=== PATIENT | female | born 1995 | race Caucasian/White ===

== ENCOUNTER 2021-06-07 20:35 | Emergency (ER) | payer OTHER, SELFPAY ==
--- NOTE | ~2021-06-07 | XR_ITS ---
EXAMINATION: XR tibia fibula LT 2V DATE: 06/07/2021 21:44 INDICATION: Posterior left knee pain TECHNIQUE: Anteroposterior and lateral views of the left tibia and fibula were obtained. COMPARISON: None. FINDINGS: Alignment is normal. Irregular but smooth cortical contour at the proximal metadiaphyseal region of t he left fibula suggesting an old healed fracture. No acute fracture. Joint spaces are normal. No left knee joint effusion. Left ankle joint effusion seen on ankle radiographs is not as well appreciated on the current study. Prominent soft tissue swelling about the lateral malleolus. IMPRESSION: 1. No acute osseous abnormality. Reviewed, dictated and finalized at location A.
--- NOTE | ~2021-06-07 | XR_ITS ---
EXAMINATION: XR ankle LT min 3V DATE: 06/07/2021 20:49 INDICATION: Left ankle pain and swelling post twisting injury TECHNIQUE: Anteroposterior, oblique, mortise, and lateral views of the left ankle were obtained. COMPARISON: None. FINDINGS: Alignment is normal. No fracture. Joint spaces are well maintained. Prominent left ankle joint effus ion. Marked soft tissue swelling about the lateral malleolus. IMPRESSION: 1. Lateral sided soft tissue swelling and large ankle joint effusion. No osseous abnormality. Reviewed, dictated and finalized at location A. IMPRESSION: 1. Lateral sided soft tissue swelling and large ankle joint effusion. No osseou s abnormality.
--- NOTE | ~2021-06-07 | XR_ITS ---
EXAMINATION: XR thoracic spine 3V DATE: 06/07/2021 21:43 INDICATION: Pinching feeling in the mid to upper back post fall. TECHNIQUE: One AP, lateral and lateral swimmer's views of the thoracic spine were obtained. COMPARISON: None. FINDINGS: Posterior spinal fusion with bilateral vertical isabel and pedicle screw fixation beginning at T11 and e xtending at least to L1 and beyond the inferior margin of the [id number]. There is suggestion of i ncreased lucency surrounding the left-sided pedicle screw at T12 on the frontal projection and could not exclude loosening at this level. 10 degree upper thoracic levoscoliosis measured between T1 and T 5. Vertebral body heights are normal. No fractures identified. Mild disc height loss at multiple leve ls from T4-T5 through L1-L2. Visualized portions of the lungs are clear. Heart size is normal. IMPRESSION: 1. Mild upper thoracic levoscoliosis and mild thoracic and upper lumbar spondylosis. 2. Partially visualized instrumented posterior spinal fusion extending from T10 through at least L1 a nd beyond the inferior margin of the [id number]. Cannot exclude chronic loosening of the left pedi kala screw at T12. Reviewed, dictated and finalized at location A. IMPRESSION: 1. Mild upper thoracic levoscoliosis and mild thoracic and upper lumbar spondyl osis. 2. Partially visualized instrumented posterior spinal fusion extending from T10 through at least L1 and beyond the inferior margin of the [id number]. Canno t exclude chronic loosening of the left pedicle screw at T12.
[2021-06-07 20:43] VITALS: BP 155/107; PULSE 112; RESP 18; TEMP 37.2; O2SAT 100
[2021-06-07] MEDS: HYDROcodone/acetaminophen (*CRX) 5-325 MG TABLET 1 TAB PO (21:41)
[2021-06-07 21:58] VITALS: BP 133/90; PULSE 102; RESP 17; O2SAT 100
--- NOTE | 2021-06-07 22:00 | ED.LOWEXIN ---
HPI - Extremity Injury (Lower) General Chief Complaint: Extremity Injury, Lower Stated Complaint: L ankle injury Time Seen by Provider: 06/07/21 20:54 Source: RN notes reviewed History of Present Illness HPI Narrative: Patient presents to emergency department for left ankle pain. Patient states she is at the [place] when she stepped into a hole twisting her left ankle. Patient states that at that time she had pain in her left ankle that radiates up into her left knee she also notes some mild back pain in the mid back states she did fall to ground did not strike her head or lose consciousness states she is not taking any medication for the pain she denies any chest pain shortness of breath abdominal pain nausea vomiting or any other symptoms Review of Systems Review of Systems: Narrative: Gen.: Denies fevers or chills Eyes: Denies eye pain or visual change ENT: Denies congestion Respiratory: Denies shortness of breath CV: Denies chest pain GI: Denies abdominal pain nausea, emesis Musculoskeletal: See HPI Neuro: Denies numbness, tingling, weakness or focal weakness Skin: Denies rash Except as documented, all other systems reviewed and negative [facility] Past Medical History Medical History (Updated 06/07/21 @ 22:03 by Manav Christianson DO) Patient denies significant medical history Social History Social History (Updated 06/07/21 @ 22:01 by Manav Christianson DO) Smoking status: Never smoker Exam Narrative: Exam Narrative: APPEARANCE: No acute distress, nontoxic, resting in bed EYES: EOMI HEENT: Normocephalic, atraumatic, OMM RESPIRATORY: No respiratory distress Clear to auscultation bilaterally with no rhonchi wheezing or rales. CARDIOVASCULAR: Regular rate and rhythm without murmurs rubs or gallops. ABDOMINAL: Soft, nontender, nondistended, no rebound or guarding MUSCULOSKELETAl: Moves all extremities. No tenderness of the right lower extremity, nontender to palpation of the left lateral ankle with swelling present no tenderness of the base of the fifth metatarsal mild tenderness over the proximal fibula no tenderness of the knee or hip, dorsalis pedis pulse 2+ neurovascular intact Back: No midline thoracic lumbar tenderness palpation mild tenderness palpation bilateral paravertebral muscles T10-12 NEURO: Awake and alert. Following commands, speech normal, no focal deficits SKIN:: Warm, dry. No rashes lesions or abrasions PSYCHIATRIC: Normal affect/mood, Course Course Emergency Course: Discussed with patient results of workup and diagnosis. Discussed need for follow-up with primary care, proper use of medication, and reasons to return to the emergency department. Patient understands and agrees to current treatment plan Vital Signs Vital signs: Vital Signs Temperature 98.9 F 06/07/21 20:43 Pulse Rate 112 H 06/07/21 20:43 Respiratory Rate 18 06/07/21 20:43 Blood Pressure 155/107 H 06/07/21 20:43 Pulse Oximetry 100 06/07/21 20:43 Temperature 98.9 F 06/07/21 20:43 Pulse Rate 102 H 06/07/21 21:58 Respiratory Rate 17 06/07/21 21:58 Blood Pressure 133/90 06/07/21 21:58 Pulse Oximetry 100 06/07/21 21:58 MDM - Extremity Injury (Lower) Imaging Data Radiologist's impression: ITS Impressions Ankle X-Ray 06/07/21 20:56 IMPRESSION: 1. Lateral sided soft tissue swelling and large ankle joint effusion. No osseous abnormality. Thoracic Spine X-Ray 06/07/21 21:44 IMPRESSION: 1. Mild upper thoracic levoscoliosis and mild thoracic and upper lumbar spondylosis. 2. Partially visualized instrumented posterior spinal fusion extending from T10 through at least L1 and beyond the inferior margin of the [id number]. Cannot exclude chronic loosening of the left pedicle screw at T12. Tibia/Fibula X-Ray 06/07/21 21:49 IMPRESSION: 1. No acute osseous abnormality. Discharge Plan Discharge Clinical Impression: Left ankle sprain, Back pain Patient Disposition: Home,
== END 2021-06-07 22:18 | disposition home or self-care (01) ==
PROVIDERS: Emergency Provider Emergency Medicine
DX: S93.402A Sprain of unspecified ligament of left ankle, initial encounter (principal); S29.9XXA Unspecified injury of thorax, initial encounter; M47.816 Spondylosis without myelopathy or radiculopathy, lumbar region; M47.814 Spondylosis without myelopathy or radiculopathy, thoracic region; X50.9XXA Other and unspecified overexertion or strenuous movements or postures, initial encounter
CPT/HCPCS: 72072; 73590; 73610; 99284; A9270